=== PATIENT | female | born 1990 | race Hispanic/Latino ===

== ENCOUNTER 2018-03-27 21:24 | Emergency (ER) | payer SELFPAY ==
[2018-03-27] MEDS ORDERED: Lorazepam 2 MG/ML VIAL ONE (21:31)
[2018-03-27 22:13] LABS: BHCG - Serum Negative (NEGATIVE); Pregs Control Background? CLEAR/WHITE (CLR/WHITE); Pregs Control Bar Appear? YES (CONTROL BAR)
--- NOTE | 2018-03-27 22:23 | CT ---
CT WITHOUT CONTRAST: 03/27/18 Multiple axial tomograms obtained through the head without IV enhancement. INDICATIONS: Seizure. Comparison made to CT head from yesterday, 03/26/18. Ventricles remain normal size and position. There is no intracranial mass, hemorrhage or infarct. No interval change noted. IMPRESSION: No acute findings and no interval change from yesterday. POS: [facility]
[2018-03-27 22:25] LABS: ALT (SGPT) 20 U/L (8-55); AST (SGOT) 33 U/L (5-34); Albumin 4.5 g/dL (3.5-5.0); Alkaline Phosphatase 78 U/L (40-150); Anion Gap 17 mmol/L (10-20); BUN (Urea Nitrogen) Less than 4 mg/dL (7.0-18.7); Bilirubin, Total 0.3 mg/dL (0.2-1.2); Calc. Creatinine Clearance 0 mL/min (70-130); Calcium 9.5 mg/dL (7.8-10.44); Carbon Dioxide 18 mmol/L (22-29); Chloride 110 mmol/L (98-107); Estimated GFR-MDRD 86; Globulin 3.6 g/dL (2.4-3.5); Glucose 92 mg/dL (70-105); Potassium 3.4 mmol/L (3.5-5.1); Protein, Total 8.1 g/dL (6.0-8.3); Sodium 142 mmol/L (136-145)
[2018-03-27 22:26] LABS: Acetaminophen Less than 6.0 mcg/mL (10.0-30.0); Alcohol Less than 10 mg/dL (Less than 10); Salicylate Less than 8.0 mg/dL (15.0-30.0)
[2018-03-27 22:34] LABS: #Basophils 0.1 thou/uL (0.0-0.2); #Lymphocytes 1.1 thou/uL (1.20-3.40); #Monocytes 0.3 thou/uL (0.11-0.59); #Neutrophils 6.4 thou/uL (1.40-6.50); %Basophils 0.8 % (0.0-1.0); %Eosinophils 0.1 % (0.0-10.0); %Lymphocytes 13.6 % (21.0-51.0); %Neutrophils 81.4 % (42.0-75.0); Anisocytosis SLIGHT = 6-15 cells (100X) (0-5/hpf); MDiff Complete? YES; Mean Corpuscular Hemoglobin 19.7 pg (27.0-31.0); Mean Corpuscular Volume 65.8 fl (81.0-99.0); Microcytosis SLIGHT = 6-15 cells (100X) (0-5/hpf); Platelet Count 480 thou/uL (130-400); RBC Distribution Width 19.4 % (11.5-14.5); Red Blood Cell (RBC) Count 5.05 mill/uL (4.20-5.40); White Blood Cell (WBC) Count 7.9 thou/uL (4.8-10.8)
== END 2018-03-28 00:05 | disposition home or self-care (01) ==
LOC: ERS 21:24
DX: R56.9 Unspecified convulsions (principal); F41.9 Anxiety disorder, unspecified; F32.9 Major depressive disorder, single episode, unspecified; F17.210 Nicotine dependence, cigarettes, uncomplicated
CPT/HCPCS: 36415; 70450; 80053; 80307; 84146; 84703; 85025; 96374; J2060

== ENCOUNTER 2022-11-17 08:48 | Emergency (ER) | payer SELFPAY ==
[2022-11-17] MEDS ORDERED: Acetaminophen/Codeine 30-300mg Tablet ONE (10:32)
[2022-11-17] MEDS ORDERED: Ketorolac Tromethamine 30 MG/ML VIAL ONE (10:32)
== END 2022-11-17 10:58 | disposition home or self-care (01) ==
LOC: ERS 08:48
DX: R07.82 Intercostal pain (principal); R05.9 Cough, unspecified; F17.210 Nicotine dependence, cigarettes, uncomplicated
CPT/HCPCS: 71045; 96372; J1885

== ENCOUNTER 2023-11-12 08:47 | Emergency (ER) | payer SELFPAY ==
[2023-11-12] MEDS ORDERED: Benzonatate 100 MG CAP ONE (09:04)
[2023-11-12] MEDS ORDERED: Albuterol 200 PUFF (6.7GM INHALER) ONE (09:07)
[2023-11-12 09:52] LABS: SARS-CoV-2 NAA Rapid Test Not Detected (NotDetected)
[2023-11-12] MEDS ORDERED: Ibuprofen 200 MG TAB ONE (09:58)
== END 2023-11-12 10:05 | disposition home or self-care (01) ==
LOC: ERS 08:47
DX: J10.1 Influenza due to other identified influenza virus with other respiratory manifestations (principal); F17.210 Nicotine dependence, cigarettes, uncomplicated

== ENCOUNTER 2024-04-09 09:14 | Emergency (ER) | payer SELFPAY | END 2024-04-09 09:40 | disposition home or self-care (01) | LOC: ERS 09:14 | DX: L25.9 Unspecified contact dermatitis, unspecified cause (principal); F17.210 Nicotine dependence, cigarettes, uncomplicated | CPT/HCPCS: 99282 ==

== ENCOUNTER 2024-10-17 09:03 | Emergency (ER) | payer OTHER | END 2024-10-17 10:57 | disposition home or self-care (01) | LOC: ERS 09:03 | DX: J06.9 Acute upper respiratory infection, unspecified (principal); F17.290 Nicotine dependence, other tobacco product, uncomplicated | CPT/HCPCS: 87428; 99283 ==